=== PATIENT | female | born 1935 | race Caucasian/White ===

== ENCOUNTER 2017-04-02 11:49 | Day surgery (SDC) | payer MEDICARE, OTHER ==
[~2017-04-02] VITALS: Ht 163.8 cm; Wt 59.2 kg
[2017-04-02] MEDS ORDERED: CEFAZOLIN PMX 1GM/50ML 50 ML IV ONE (12:30)
[2017-04-02] MEDS ORDERED: ATOR40TA78 PO (12:56)
[2017-04-02] MEDS ORDERED: MULT-738 PO (12:56)
[2017-04-02] MEDS ORDERED: HYDROCODONE PO (12:56)
[2017-04-02] MEDS ORDERED: PLAVIX PO (12:56)
[2017-04-02] MEDS ORDERED: CALCIUM PO (12:56)
[2017-04-02] MEDS ORDERED: ASPIRIN PO (12:56)
[2017-04-02 12:58] VITALS: BP 154/67
[2017-04-02] MEDS ORDERED: SODIUM CHLORIDE 0.9% 1,000 ML IV SCH (13:00)
[2017-04-02] MEDS ORDERED: FENTANYL PF 100 MCG/2ML ONE (13:06)
[2017-04-02] MEDS ORDERED: NALOXONE 1 MG/ML, 2ML ONE (13:07)
[2017-04-02] MEDS ORDERED: NITROGLYCERIN 5 MG/ML, 10ML ONE (13:07)
[2017-04-02] MEDS ORDERED: HEPARIN 1,000 UNITS/ML, 10ML ONE (13:07)
[2017-04-02] MEDS ORDERED: FLUMAZENIL 0.1 MG/1 ML, 5ML ONE (13:07)
[2017-04-02] MEDS ORDERED: PROTAMINE SULFATE 10 MG/ML, 25ML ONE (13:07)
[2017-04-02] MEDS ORDERED: MIDAZOLAM 1 MG/ML, 5ML ONE (13:07)
[2017-04-02 13:09] LABS: HEMATOCRIT 44.6 % (34.6-47.8); HEMOGLOBIN 15.1 g/dL (11.7-16.4); WHITE BLOOD COUNT 5.5 x10^3/uL (3.4-10)
[2017-04-02 13:16] LABS: BLOOD UREA NITROGEN 19 mg/dL (7-18)
[2017-04-02] MEDS ORDERED: VISIPAQUE 270 MG/ML, 150ML BOTTLE ONE (14:00)
[2017-04-02] MEDS ORDERED: CLOPIDOGREL 75 MG TABLET ONE (14:41)
== END 2017-04-02 18:25 ==
LOC: OUT 11:49
PROVIDERS: ATTEND Surgery
DX: I70.301 Unspecified atherosclerosis of unspecified type of bypass graft(s) of the extremities, right leg (principal); E78.5 Hyperlipidemia, unspecified
CPT/HCPCS: 36415; 37224; 37228; 75716; 80048; 85025; 99156; 99157; C1725; C1751; C1760; C1769; C1894; C2623; J0690; J1644; J2250; J2720; J3010; J7030; Q9966; 37232; 75710; J2310

== ENCOUNTER → 2017-12-11 | Outpatient (CLI) | payer MEDICARE, OTHER ==
[~2017-12-11] MED LIST: ASPIRIN PO; ATOR40TA78 PO; CALCIUM PO; HYDROCODONE PO; MULT-738 PO; PLAVIX PO
== END ==
LOC: RAD 16:05
PROVIDERS: ATTEND Surgery
DX: I65.23 Occlusion and stenosis of bilateral carotid arteries (principal)
CPT/HCPCS: 93880